=== PATIENT | male | born 1955 | race African-American/Black ===

== ENCOUNTER 2017-06-28 11:20 | Emergency (ER) | payer OTHER ==
[~2017-06-28] VITALS: Ht 170.2 cm; Wt 77.4 kg
[~2017-06-28 11:20] MED LIST: CIPRO500 MG PO; CIPRO750 MG PO; DURAGESIC75 MCG TD; FENOFIBRATE54 M1 PO; FENTANYL1 EAC2 TD; FIORICET 50-301 EACH PO; FLAGYL500 MG PO; NIFEDIPINE ER30 MG PO; NOVOLOG MI100 UNIT/4 SC; OXYCODONE-APAP1 EACH PO; REGLAN5 MG PO; TRAMADOL HCL50 MG PO; TYLENOL WITH C1 EACH PO; ZESTORETIC 20-1 EAC1 PO; ZOFRAN4 MG PO
[2017-06-28 13:08] LABS: EOSINOPHIL (%) 1.8 % (0-5); EOSINOPHIL COUNT 0.1 K/uL (0-0.3); HEMATOCRIT 38.1 % (38.0-50.0); IMMATURE GRANULOCYTE (%) 0.4 % (0.0-0.7); LYMPHOCYTE COUNT 1.9 K/uL (1.0-2.8); MCH 27.3 PG (29.0-34.0); MCHC 34.1 G/DL (30.0-36.0); MCV 79.9 FL (86-99); MEAN PLAT.VOLUME 9.6 uM^3 (9.0-12.4); MONOCYTE (%) 8.1 % (3-12); MONOCYTE COUNT 0.6 K/uL (0-0.8); NEUTROPHIL (%) 64.7 % (45-76); PLATELET COUNT 186 K/uL (156-360); RBC DIS.WIDTH-CV 13.6 % (11.8-14.6); RBC DIS.WIDTH-SD 39.4 % (39-53); RED BLOOD COUNT 4.77 M/uL (4.00-5.50); WHITE BLOOD COUNT 7.7 K/uL (4.1-10.2)
[2017-06-28 13:17] LABS: CHLORIDE 109 mEq/L (99-109); POTASSIUM 3.5 mEq/L (3.7-5.4); PROTHROMBIN TIME 10.9 SEC (10.2-12.9); SODIUM 139 mEq/L (136-147)
[2017-06-28 13:19] LABS: GLUCOSE 155 mg/dL (70-99); PTT 32.4 SEC (25-37)
[2017-06-28 13:20] LABS: ANION GAP 9 MEQ/L (2-14)
[2017-06-28 13:23] LABS: GFR ESTIMATE (CALCULATED) 53 mL/min/
[2017-06-28 13:24] LABS: UREA NITROGEN (BUN) 33 mg/dL (9-23)
[2017-06-28 13:32] LABS: TROP-I INTERPRETATION NEGATIVE; TROPONIN-I < 0.01 ng/mL (0.0-0.30)
[2017-06-28 15:43] LABS: TROP-I INTERPRETATION NEGATIVE; TROPONIN-I < 0.01 ng/mL (0.0-0.30)
[2017-06-28 17:21] VITALS: BP 187/97
== END 2017-06-28 17:22 | disposition home or self-care (01) ==
LOC: EME 11:20
PROVIDERS: Emergency Medicine
DX: R07.89 Other chest pain (principal); I10 Essential (primary) hypertension; E78.5 Hyperlipidemia, unspecified; E11.9 Type 2 diabetes mellitus without complications; Z87.891 Personal history of nicotine dependence
CPT/HCPCS: 71010; 80048; 84484; 85025; 85610; 85730; 93005; 99281; 99285; J2270

== ENCOUNTER 2017-07-18 09:28 | Emergency (ER) | payer OTHER ==
[~2017-07-18] VITALS: Ht 170.2 cm; Wt 73.2 kg
[2017-07-18] MEDS ORDERED: FLEXERIL10 MG PO (12:34)
[2017-07-18 13:09] VITALS: BP 176/93
== END 2017-07-18 13:10 | disposition home or self-care (01) ==
LOC: EME 09:28
DX: M54.9 Dorsalgia, unspecified (principal); G89.29 Other chronic pain; I10 Essential (primary) hypertension; E11.9 Type 2 diabetes mellitus without complications; Z72.0 Tobacco use
CPT/HCPCS: 99281; 99283; J3010

== ENCOUNTER 2017-09-23 12:36 | Emergency (ER) | payer OTHER ==
[~2017-09-23] VITALS: Ht 170.2 cm; Wt 70.7 kg
[~2017-09-23 12:36] MED LIST changes: +FLEXERIL10 MG PO
[2017-09-23] MEDS ORDERED: NAPROSYN500 MG PO (13:14)
[2017-09-23] MEDS ORDERED: MEDROL DOSEPAK4 MG PO (13:14)
[2017-09-23] MEDS ORDERED: LIDODERM 5% P1 PATCH TD (13:14)
== END 2017-09-23 14:03 | disposition home or self-care (01) ==
LOC: EME 12:36
DX: G89.29 Other chronic pain (principal); M54.5 Low back pain; M79.605 Pain in left leg; R20.0 Anesthesia of skin; R68.83 Chills (without fever); E11.9 Type 2 diabetes mellitus without complications; Z79.4 Long term (current) use of insulin
CPT/HCPCS: 99281; 99283; J1885; J2270